=== PATIENT | female | born 1980 | race Caucasian/White ===

== ENCOUNTER 2020-06-12 15:25 | Emergency (ER) | payer OTHER ==
--- NOTE | 2020-06-12 16:39 | ER Document Report ---
ED Medical Screen (RME) - General Chief Complaint: Knee Pain Stated Complaint: RIGHT KNEE,ANKLE PAIN,SWELLING Time Seen by Provider: 06/12/20 16:29 Mode of Arrival: Ambulatory Information source: Patient Notes: HPI; 39-year-old female presents emergency room complaining of persistent right knee swelling that has been intermittent for the past several months. States she saw her primary care physician about 3 weeks ago was told to ice it rested and take ibuprofen which she states she has been doing. States she went back to see them on Thursday and had x-rays done and was told that her x-rays were negative. Patient states she is now having calf pain and right ankle pain that started today. She denies any trauma or injury. No recent travel. No use of contraceptives. 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 PE: Alert and oriented x3. Lungs: Clear to auscultation without rales, rhonchi, wheezes. Heart: Regular rate rhythm without murmurs, rubs, gallops. Heart: Regular rate rhythm without murmurs, rubs, gallops. Right knee is nontender to palpation. There is mild swelling noted over the patella. She has full range of motion with flexion, extension. She is a negative anterior posterior draw, negative Elsa's, negative Marina's. Right ankle with swelling noted. Full range of motion to right ankle with flexion, extension eversion and inversion. She does have a positive Homans sign. Positive right pedal pulse. I have greeted and performed a rapid initial assessment of this patient. A comprehensive ED assessment and evaluation of the patient, analysis of test results and completion of the medical decision making process will be conducted by additional ED providers. I have specifically instructed the patient or family members with the patient to immediately return to any nursing staff should anything change in the patient's condition or with their chief complaint. TRAVEL OUTSIDE OF THE [place] IN LAST 30 DAYS: No - Related Data Allergies/Adverse Reactions: No Known Allergies Allergy (Unverified 06/12/20 16:28) Physical Exam - Vital signs Vitals: Temp Pulse Resp BP Pulse Ox 98.8 F 67 16 133/82 H 99 06/12/20 16:18 06/12/20 16:18 06/12/20 16:18 06/12/20 16:18 06/12/20 16:18 Course - Vital Signs Vital signs: Temp Pulse Resp BP Pulse Ox 98.8 F 67 16 133/82 H 99 06/12/20 16:18 06/12/20 16:18 06/12/20 16:18 06/12/20 16:18 06/12/20 16:18
--- NOTE | 2020-06-12 17:17 | RADIOLOGY REPORT (SQ) ---
EXAM DESCRIPTION: KNEE RIGHT 4 VIEWS IMAGES COMPLETED DATE/TIME: 06/12/2020 4:00 pm REASON FOR STUDY: pain COMPARISON: None. NUMBER OF VIEWS: Four views. TECHNIQUE: AP, lateral, and both oblique radiographic images acquired of the right knee. LIMITATIONS: None. FINDINGS: MINERALIZATION: Normal. BONES: There is a tiny os ossific density in the joint space measuring about 2 mm adjacent to the lat eral tibial spine. No acute displaced fracture. JOINT: Moderate joint effusion. SOFT TISSUES: No soft tissue swelling. No radio-opaque foreign body. OTHER: No other significant finding. IMPRESSION: 2 mm avulsion injury adjacent to the lateral tibial spine, suggestive of an ACL injury. Moderate joint effusion. No acute displaced fracture. TECHNICAL DOCUMENTATION: JOB ID: [id number] 2010 [employer]- All Rights Reserved Reading location - IP/workstation name: [email or web address]
--- NOTE | 2020-06-12 19:17 | RADIOLOGY REPORT (SQ) ---
EXAM DESCRIPTION: VENOUS UNILATERAL LOWER IMAGES COMPLETED DATE/TIME: 06/12/2020 5:54 pm REASON FOR STUDY: right leg swelling COMPARISON: None. TECHNIQUE: Dynamic and static cosme scale and color images acquired of the right leg venous system. S elected spectral images acquired with additional compression and augmentation maneuvers. The contrala teral common femoral vein and saphenofemoral junction were also imaged. Images stored on PACS. LIMITATIONS: None. FINDINGS: COMMON FEMORAL: Normal phasicity, compression and augmentation. No visualized echogenic ma terial on cosme scale. No defects on color images. FEMORAL: Normal compression and augmentation. No visualized echogenic material on cosme scale. No defe cts on color images. POPLITEAL: Normal compression, augmentation. No visualized echogenic material on cosme scale. No defec ts on color images. CALF VESSELS: Normal compression, augmentation. No visualized echogenic material on cosme scale. No de fects on color images. GSV and SSV: Normal compression, augmentation. No visualized echogenic material on cosme scale. No def ects on color images. ANY DEEP VENOUS INSUFFICIENCY: Not evaluated. ANY EVIDENCE OF POPLITEAL CYST: No. OTHER: No other significant finding. CONTRALATERAL COMMON FEMORAL VEIN AND SAPHENOFEMORAL JUNCTION: Not performed. IMPRESSION: NO EVIDENCE OF DVT OR SVT IN THE RIGHT LEG. TECHNICAL DOCUMENTATION: JOB ID: [id number] 2010 [employer]- All Rights Reserved Reading location - IP/workstation name: [email or web address]
--- NOTE | 2020-06-13 01:17 | ER Document Report ---
ED General - General Chief Complaint: Knee Pain Stated Complaint: RIGHT KNEE,ANKLE PAIN,SWELLING Time Seen by Provider: 06/12/20 16:29 Mode of Arrival: Ambulatory Information source: Patient Notes: Patient is a 39-year-old female with ongoing pain in the right knee. Also now having swelling that appears to be going down the leg into her foot. No chest pain or shortness of breath. She has been to see her doctor multiple times and has had multiple imaging of this area with no specific diagnosis. She has not been referred to an orthopedist. TRAVEL OUTSIDE OF THE [place] IN LAST 30 DAYS: No - Related Data Allergies/Adverse Reactions: No Known Allergies Allergy (Unverified 06/12/20 16:28) Past Medical History - General Information source: Patient - Social History Smoking Status: Never Smoker Chew tobacco use (# tins/day): No Frequency of alcohol use: None Drug Abuse: None Family History: Reviewed & Not Pertinent Patient has homicidal ideation: No Review of Systems - Review of Systems Notes: Constitutional: No fevers. No chills. EENT: No eye redness. No eye pain. No ear pain. No sore throat. Cardiovascular: No chest pain. No palpitations. Respiratory: No cough. No shortness of breath. No respiratory distress. Gastrointestinal: No abdominal pain. No nausea, vomiting, or diarrhea. Genitourinary: Atraumatic. No lesions. No pain. No discharge. Musculoskeletal: Right knee pain and swelling Skin: No rash or lesions. Lymphatic: No swollen lymph nodes. Neurologic: No headache. No syncope. Psychiatric: No suicidal or homicidal ideation. Physical Exam - Vital signs Vitals: Temp Pulse Resp BP Pulse Ox 98.8 F 67 16 133/82 H 99 06/12/20 16:18 06/12/20 16:18 06/12/20 16:18 06/12/20 16:18 06/12/20 16:18 - Notes Notes: General: Well-developed, well-nourished. In no acute distress. Non-toxic appearing. Cardiac: Well-perfused. Regular rate and rhythm. No murmurs, rubs, or gallops. Pulmonary: No respiratory distress. No cyanosis. Bilateral lung raygoza are clear to auscultation. Abdominal: Non-distended. Non-rigid. Bowels sounds are present in all four quadrants. No guarding or rebound. HEENT: Head is atraumatic. Conjunctivae not reddened. No tearing. PERRL. EOMI. Orbits atraumatic. No periorbital swelling or erythema. Oropharynx is without erythema, swelling, or exudates. Neck: Supple. No adenopathy. No meningismus. Dermatologic: Warm with good turgor. No rash. Atraumatic. Chest: Atraumatic. No chest wall tenderness to palpation. Musculoskeletal: Right lower extremity with mild edema from the knee down through the foot. Tenderness to the lateral aspect of the proximal tibia. No bony deformity. Good flexion and extension. No obvious ligamentous laxity. Distal neurovascular exam is intact Genitourinary: Examination deferred Neurologic: No gross neurologic deficits. Psychiatric: Normal mood. Course - Re-evaluation Re-evalutation: 06/13/20 01:14 DVT study negative. X-ray shows possible cruciate ligament injury. We will put her in a long-leg knee immobilizer and crutches. Refer to orthopedics. - Vital Signs Vital signs: Temp Pulse Resp BP Pulse Ox 98.1 F 66 16 147/91 H 100 06/12/20 22:55 06/12/20 22:55 06/12/20 22:55 06/12/20 22:55 06/12/20 22:55 Discharge - Discharge Clinical Impression: Internal derangement of right knee, Elevated blood pressure reading Knee effusion Qualifiers: Laterality: right Qualified Code(s): M25.461 - Effusion, right knee Condition: Good Disposition: HOME, SELF-CARE Instructions: Use of Crutches ([facility]), Ice & Elevation ([facility]), Suspected Internal Knee Injury ([facility]), Knee Immobilizing Splint ([facility]) Prescriptions: Naproxen 500 mg PO BID 10 Days #20 tablet Forms: Elevated Blood Pressure Referrals: IJEOMA THOMPSON DO [ACTIVE STAFF] - Follow up as needed
[2020-06-13 01:56] VITALS: BP 140/90
== END 2020-06-13 01:49 | disposition home or self-care (01) ==
LOC: ER 15:25
DX: M23.91 Unspecified internal derangement of right knee (principal); R03.0 Elevated blood-pressure reading, without diagnosis of hypertension; M25.561 Pain in right knee; M25.571 Pain in right ankle and joints of right foot
CPT/HCPCS: 93971; 99284